=== PATIENT | male | born 1965 | race Hispanic/Latino ===

== ENCOUNTER 2021-03-25 11:33 | Outpatient (CLI) | payer BC ==
[2021-03-25 12:42] LABS: #Basophils 0.1 10x3/uL (0.0-0.2); #Eosinphils 0.1 10x3/uL (0.0-0.5); #Monocytes 0.7 10x3/uL (0.0-1.1); #Neutrophils 4.5 10x3/uL (1.5-8.4); %Eosinophils 1.4 % (0.0-6.0); %Lymphocytes 23.8 % (18.0-47.0); %Monocytes 9.9 % (0.0-10.0); %Neutrophils 63.3 % (40.0-75.0); Hemoglobin 15.2 g/dL (13.5-17.5); Mean Corpuscular HGB CONC 34.4 g/dL (32.0-36.0); Mean Corpuscular Hemoglobin 34.2 pg (27.0-33.0); Mean Corpuscular Volume 99.3 fl (81.2-95.1); Mean Platelet Volume 10.5 fl (7.4-10.4); Platelet Count 179 10x3/uL (150-450); RBC Distribution Width 12.4 % (11.5-14.5); Red Blood Cell (RBC) Count 4.45 10x6/uL (4.32-5.72); White Blood Cell (WBC) Count 7.1 10x3/uL (3.5-10.5)
[2021-03-25 12:51] LABS: Prothrombin Time 10.9 sec (9.5-12.1)
[2021-03-25 13:35] LABS: ALT (SGPT) 75 U/L (8-55); AST (SGOT) 42 U/L (5-34); Albumin 4.4 g/dL (3.5-5.0); Alkaline Phosphatase 98 U/L (40-110); Bilirubin, Direct 0.2 mg/dL (0.1-0.3); Bilirubin, Total 0.4 mg/dL (0.2-1.2); Protein, Total 7.2 g/dL (6.0-8.3)
[2021-03-26 01:48] LABS: SARS-CoV-2 PCR by NAA Not Detected (NotDetected)
== END 2021-03-25 11:34 | disposition home or self-care (01) ==
LOC: CSHLAB 11:33
PROVIDERS: ATTEND Internal Medicine Gastroenterology
DX: Z01.812 Encounter for preprocedural laboratory examination (principal); Z20.822 Contact with and (suspected) exposure to COVID-19; R94.5 Abnormal results of liver function studies; R79.0 Abnormal level of blood mineral; K62.89 Other specified diseases of anus and rectum
CPT/HCPCS: 80076; 82607; 82746; 85025; 85610; 87635; U0003; U0005

== ENCOUNTER 2021-03-30 07:07 | Day surgery (SDC) | payer BC ==
[2021-03-30 07:55] VITALS: BMI 25.8
[2021-03-30] MEDS ORDERED: Fentanyl 100 MCG/2 ML VIAL ONE (08:05)
[2021-03-30] MEDS ORDERED: Naloxone HCl 0.4 mg/ml Vial ONE (08:06)
[2021-03-30] MEDS ORDERED: Lidocaine 1% PF 5 ML VIAL ONE (08:06)
[2021-03-30] MEDS ORDERED: Midazolam HCl 5 mg/5 ml Vial ONE (08:06)
[2021-03-30] MEDS ORDERED: Sodium Bicarbonate 2.5 MEQ/5 ML VIAL ONE (08:07)
== END 2021-03-30 09:35 | disposition home or self-care (01) ==
LOC: CSHULT 07:07
PROVIDERS: ATTEND Internal Medicine Gastroenterology
DX: R94.5 Abnormal results of liver function studies (principal); R79.0 Abnormal level of blood mineral; K62.89 Other specified diseases of anus and rectum
CPT/HCPCS: 47000; 76942; 88307; 88313; J2250; J2310; J3010